=== PATIENT | male | born 1990 | race Two or more races ===

== ENCOUNTER → 2016-11-29 | Outpatient (CLI) | payer OTHER ==
[~2016-11-29] MED LIST: ANUSOL30 GM EXT; COLACE PO; HEADACHE MEDICINE; MILK OF MAGNESIA PO; PANTOPRAZOLE SO20 MG PO; [UNRECOGNIZED DRUG - OTHER]
--- NOTE | ~2016-11-29 | MR17 ---
[facility] A Service of [facility] & [facility] RADIOLOGY TEXT RESULTS PATIENT: CATHY BATEMAN LOCATION: [facility] : 88 UNIT #: [id number] AGE: [address]: Moy Law APRN SEX: M ORDER DR: [id number] [facility] [address] [place], [place] [address] [id number] O MR#: [id number] Acc #: [id number] NAME: CATHY BATEMAN : 1990 SEX: M STUDY DATE/TIME: 11/29/2016 10:12 UNIT: [facility] ROOM: STUDY DESCRIPTION: MR Brain WWo Contrast Attending Physician: Moy Law Aprn Referring Physician: Moy Law Aprn Ordering Physician: Moy Law Aprn Primary Care Physician: Moy Law Aprn MRI CENTER REPORT This report is preliminary unless electronic signature is present. EXAM MRI of the brain with and without contrast dated 11/29/2016 COMPARISON None HISTORY Headaches for 2 months FINDINGS Multisequence multiplanar imaging of the brain was obtained with and without contrast. 14 mL of MultiHance was administered intravenously. Horn-white junction is preserved. Basal ganglia, brainstem and cerebellar hemispheres are within normal limits. Thick slices through the sella with the pituitary gland, pineal region and upper cervical spine are within normal limits. The internal auditory canals with the inner ear structures and their adjacent cerebellopontine angles do not demonstrate any significant abnormality either. Postcontrast sequences do not demonstrate enhancing intracranial lesions or mass. S-shaped nasal septal deviation is noted with small bilateral maxillary sinus mucous retention cyst and paranasal sinus mucosal thickening particularly in bilateral ethmoid sinuses. Imaged orbits and the ocular structures and mastoids are unremarkable. IMPRESSION 1. Brain is unremarkable. 2. S-shaped nasal septal deviation is noted with paranasal sinus disease. Dictated by... Dionisio Stein M.D. THIS IS AN ELECTRONICALLY VERIFIED REPORT Dionisio Stein M.D. at 11/29/2016 3:38 PM [facility] A Service of [facility] & [facility] RADIOLOGY TEXT RESULTS PATIENT: CATHY BATEMAN LOCATION: [facility] : [birth year] UNIT #: [id number] AGE: [address]: Moy Law APRN SEX: M ORDER DR: Ahsan TD: 11/29/2016 13:03 JOB #: [id number] MRI CENTER REPORT Page 1 of 1 COPY
== END | disposition home or self-care (01) ==
LOC: CMRI 09:46
DX: R51 Headache (principal); J34.2 Deviated nasal septum
CPT/HCPCS: 70553; A9577

== ENCOUNTER 2017-02-12 01:03 | Emergency (ER) | payer OTHER ==
[~2017-02-12] VITALS: Ht 167.6 cm; Wt 66.7 kg
--- NOTE | ~2017-02-12 | CT2 ---
[facility] A Service of [facility] RADIOLOGY TEXT RESULTS PATIENT: CATHY BATEMAN LOCATION: [facility] : 89 UNIT #: [id number] AGE: [address]: PATRICK THOMAS APRN SEX: M ORDER DR: [id number] [facility] [address] [place], [place] [address] [id number] E MR#: [id number] Acc #: [id number] NAME: CATHY BATEMAN : 1990 SEX: M STUDY DATE/TIME: 02/12/2017 4:36 UNIT: [facility] ROOM: STUDY DESCRIPTION: CT Abd and Pelv W Cont Attending Physician: Patrick Thomas Aprn Ordering Physician: Patrick Thomas Aprn Primary Care Physician: Moy Law Aprn MEDICAL IMAGING REPORT This report is preliminary unless electronic signature is present EXAM CT abdomen and pelvis with contrast, 02/12/2017 HISTORY 26-year-old male in the ED complaining of mid epigastric pain beginning after eating earlier today. Nausea. TECHNIQUE CT examination of the abdomen and pelvis was performed with IV contrast. GI contrast was not ordered. This CT examination was performed with one or more of the following radiation dose reduction techniques: automatic exposure control, adjustment of mA and/or kV according to patient size, and iterative reconstruction. COMPARISON CT abdomen/pelvis 04/16/2012. FINDINGS ABDOMEN: Liver, pancreas, spleen and kidneys are normal in size and appearance. No gallbladder distension or bile duct dilatation. No evidence of urinary obstruction. Small bowel and colon are normal in caliber and appearance, as imaged. No evidence of acute appendicitis. Normal-caliber abdominal aorta. PELVIS: Urinary bladder and rectum are negative. Tiny benign-appearing midline prostate cyst is unchanged since the prior exam and is likely of no clinical significance. No inguinal hernia or abdominal wall hernia. Limited lung base images show no active disease in the lower chest. IMPRESSION Negative CT examination of the abdomen and pelvis. No change since [facility] A Service of [facility] RADIOLOGY TEXT RESULTS PATIENT: CATHY BATEMAN LOCATION: [facility] : 89 UNIT #: [id number] AGE: [address]: PATRICK THOMAS APRN SEX: M ORDER DR: 04/16/2012. Dictated by... Raghav Torres M.D. THIS IS AN ELECTRONICALLY VERIFIED REPORT Raghav Torres M.D. at 02/12/2017 9:59 PM ALLYSSA/sheela TD: 02/12/2017 13:20 JOB #: [id number] MEDICAL IMAGING REPORT Page 1 of 1 COPY
--- NOTE | ~2017-02-12 | EKG ---
PATIENT: CATHY BATEMAN UNIT #: [id number] Ventricular Rate: 88 BPM Atrial Rate: 88 BPM P-R Interval: 140 ms QRS Duration: 90 ms Q-T Interval: 350 ms QTC Calculation(Bezet): 423 ms P Dubach: 60 degrees Calculated R Dubach: 57 degrees Calculated T Dubach: 22 degrees Diagnosis Line: Normal sinus rhythm Diagnosis Line: Normal ECG Diagnosis Line: No previous ECGs available Diagnosis Line: Confirmed by STU CHILD MD ([id number]) on Diagnosis Line: 02/12/2017 12:40:15 PM INTERPRETING MD: MATEUSZ NAIK
[~2017-02-12 01:03] MED LIST changes: -HEADACHE MEDICINE; -PANTOPRAZOLE SO20 MG PO
[2017-02-12] MEDS ORDERED: PANTOPRAZOLE SO20 MG PO (01:08)
[2017-02-12] MEDS ORDERED: HEADACHE MEDICINE (01:08)
[2017-02-12 01:54] LABS: BASOPHIL# 0.1 X10e3 (0-0.3); BASOPHIL% 0.5 % (0-2.5); EOSINOPHIL# 0.6 X10e3 (0-0.7); EOSINOPHIL% 6.1 % (0.0-7.0); HEMATOCRIT 45.8 % (38.0-50.0); HEMOGLOBIN 16.1 gm/dL (13.0-16.0); LYMPHOCYTE# 3.8 X10e3 (1.0-3.5); LYMPHOCYTE% 36.4 % (17.0-45.0); MEAN CELL VOLUME 86.7 FL (83-96); MEAN CORPUSCULAR HEMOGLOBIN 30.4 PG (28-34); MEAN PLATELET VOLUME 11.2 FL (6.5-11.5); MONOCYTE# 0.8 X10e3 (0-1.0); MONOCYTE% 7.3 % (3.0-12.0); NEUTROPHIL# 5.2 X10e3 (1.5-7.1); NEUTROPHIL% 49.7 % (40-75); PLATELET COUNT 185 X10e3 (140-420); RED BLOOD COUNT 5.29 X10e (3.90-5.60); WHITE BLOOD COUNT 10.4 X10e3 (4.0-10.5)
[2017-02-12 02:01] LABS: DIFF IND NO
[2017-02-12 02:16] LABS: ALBUMIN SERUM 4.9 g/dL (3.5-5.0); BILIRUBIN, DIRECT 0.1 mg/dL (0.0-0.2); BILIRUBIN,INDIRECT 0.9 mg/dL (0.0-0.9); CALCIUM SERUM 9.5 mg/dL (8.4-10.2); GLOM FILT RATE Estimated 102.7 mL/min (>60); POTASSIUM 3.8 mmol/L (3.5-5.1); PROTEIN TOTAL SERUM 7.8 g/dL (6.0-8.3)
== END 2017-02-12 05:54 | disposition home or self-care (01) ==
LOC: CED 01:03
PROVIDERS: Nurse Practitioner Family
DX: K29.00 Acute gastritis without bleeding (principal); K21.9 Gastro-esophageal reflux disease without esophagitis; Z79.899 Other long term (current) drug therapy
CPT/HCPCS: 36415; 74177; 80048; 80076; 82150; 83690; 85025; 93005; 96361; 96374; 96375; 99284; J1885; Q9967